=== PATIENT | male | born 1990 | race Caucasian/White ===

== ENCOUNTER 2019-10-31 04:20 | Day surgery (SDC) | payer OTHER ==
[2019-10-30 13:09] VITALS: BMI 25.4
[2019-10-31 11:01] VITALS: PULSE 78
[2019-10-31] MEDS ORDERED: BUPIVACAINE HCL/PF 0.75% 10 ML VIAL ONE (11:20)
--- NOTE | 2019-10-31 11:22 | PROC ---
Procedure Note Procedure: Preprocedure Diagnosis: Bilateral Sacroiliac Joint dysfunction Post Procedure Diagnosis: same Anesthesia: local Procedure Performed: Bilateral Sacroiliac Joint Blocks Procedure: After the risks and benefits were explained, informed consent was obtained. The patient was then taken to the procedure room and positioned prone on the procedure table. Time out was performed. The region overlying the sacrum was identified using fluoroscopy. The skin was prepped and draped in the usual sterile fashion. The skin and soft tissues were anesthetized using 1% lidocaine. Using fluoroscopic guidance, A 22g 3.5 inch spinal needle was introduced the junction of the inferior articulating facet and the sacrum where the L5 medial branch is located, and 25-gauge 2.5 inch spinal needles were then introduced to sacrum lateral to the right S1 S2 and S3 foramens where the RIGHT S1-S2 and S3 lateral branches are located. Omnipaque 180 confirmed appropriate needle placement. There was no epidural or vascular flow observed. .75% bupivacaine was drawn into a syringe. 0.5cc of this solution was then injected at each level. The same procedure was repeated on the LEFT side at the same levels. The patient tolerated the procedure well and there were no complications. The patient was taken to the post procedure recovery area in good condition. Vital signs remained stable before, and after the procedure. The patient was given oral follow-up instructions.The patient was givena follow up appointment with me in the near future. Alexander Xiong D.O
[2019-10-31] MEDS ORDERED: LIDOCAINE HCL 1%, 10 MG/ML (20ML VIAL) INF ONE (11:42)
[2019-10-31] MEDS ORDERED: BUPIVACAINE HCL/PF 0.75% 10 ML VIAL NR ONE (11:43)
[2019-10-31 14:18] VITALS: BP 123/73; TEMP 97.5
== END 2019-10-31 12:45 | disposition home or self-care (01) ==
LOC: JASU-SURG 04:20
PROVIDERS: ATTEND Pain Medicine Pain Medicine
PROC: 3E0T33Z Introduction of Anti-inflammatory into Peripheral Nerves and Plexi, Percutaneous Approach (ICD-10-PCS; 2019-10-31)
PROC: 3E0T3BZ Introduction of Anesthetic Agent into Peripheral Nerves and Plexi, Percutaneous Approach (ICD-10-PCS; principal; 2019-10-31 11:00)
DX: M53.3 Sacrococcygeal disorders, not elsewhere classified (principal)
CPT/HCPCS: 76000-TC-FY

== ENCOUNTER 2019-11-14 04:36 | Day surgery (SDC) | payer OTHER ==
[2019-11-13 08:01] VITALS: BMI 25.4
[2019-11-14] MEDS ORDERED: BUPIVACAINE HCL 50 ML ONE (07:17)
[2019-11-14] MEDS ORDERED: BUPIVACAINE HCL/PF 0.25% (2.5MG/ML) 10 ML VIAL ONE (07:17)
[2019-11-14] MEDS ORDERED: LIDOCAINE HCL 1%, 10 MG/ML (20ML VIAL) ONE (07:17)
[2019-11-14] MEDS ORDERED: IOHEXOL 180 MG/1 ML ML IJ ONE (10:42)
[2019-11-14] MEDS ORDERED: BUPIVACAINE HCL/PF 2.5 MG/ML - 30 ML VIAL IJ ONE (10:42)
[2019-11-14 12:29] VITALS: TEMP 97.8
[2019-11-14 12:47] VITALS: BP 130/70; PULSE 74
--- NOTE | 2019-11-17 22:19 | PROC ---
Procedure Note Procedure: Pre procedure Diagnosis: Cervical Spondylosis Post Procedure Diagnosis: same Anesthesia: local Procedure Performed: Right and Left C3 C4 C5 medial branch block under fluorocopic guidance After the risks and benefits were explained, informed consent was obtained. The patient was then taken to the procedure room and positioned prone on the procedure table. Time out was performed. The region overlying the appropriate vertebral bodies was identified using fluoroscopy. The skin was prepped and draped in the usual sterile fashion. Using fluoroscopic guidance, 25 gauge 2.5 inch spinal needles were then introduced to the fossa at the center of the waists of the articular pillars where the BILATERAL C3, C4, and C5 medial branches are located. Omnipaque 180 confirmed appropriate needle placement. There was no epidural or vascular flow observed. .25 % bupivacaine was drawn into a syringe. 0.5cc of this solution was then injected at each level. The same procedure was repeated on the LEFT side at the same levels. The patient tolerated the procedure well and there were no complications. The patient was taken to the post procedure recovery area in good condition. Vital signs remained stable before, during, and after the procedure. The patient was given oral and written follow-up instructions. The patient was given a follow up appointment with me in the near future. Alexander Xiong DO
== END 2019-11-14 11:45 | disposition home or self-care (01) ==
LOC: JASU-SURG 04:36
PROVIDERS: ATTEND Pain Medicine Pain Medicine
PROC: 3E0T33Z Introduction of Anti-inflammatory into Peripheral Nerves and Plexi, Percutaneous Approach (ICD-10-PCS; 2019-11-14)
PROC: 3E0T3BZ Introduction of Anesthetic Agent into Peripheral Nerves and Plexi, Percutaneous Approach (ICD-10-PCS; principal; 2019-11-14 12:00)
DX: M47.812 Spondylosis without myelopathy or radiculopathy, cervical region (principal)
CPT/HCPCS: 76000-TC-FY

== ENCOUNTER 2019-12-26 04:31 | Day surgery (SDC) | payer OTHER ==
[2019-12-25 15:16] VITALS: BMI 24.7
--- NOTE | 2019-12-25 23:06 | PROC ---
Procedure Note Procedure: Pre procedure Diagnosis: Lumbar Radiculopathy Post Procedure Diagnosis: same Anesthesia: Local Procedure Performed: Right L4 and L5 Transforaminal Epidural Steroid Injection After the risks and benefits were explained, informed consent was obtained. The patient was then taken to the procedure room and positioned prone on the procedure table. Time out was performed. The region overlying the Right L4 and L5 neural foramens were identified using fluoroscopy. The skin was prepped and draped in the usual sterile fashion. The skin and soft tissues were anesthetized using 1% lidocaine. The neural foramens were identified with the fluoroscopic beam directed in a right oblique direction. 2 22 gauge 3.5 inch spinal needles were then introduced into the appropriate neural foramens using intermittent fluoroscopic guidance using AP, oblique and lateral views as indicated. Needle placement was then confirmed with the injection of Omnipaque 180. Epidural flow was noted and the nerve root was outlined. No vascular uptake was noted. Next, a mixture 1.5 cc of dexamethasone and Normal saline followed by 0.5 cc of 1% lidocaine was then injected around the Right L4 and L5 spinal nerves. The patient tolerated the procedure well and there were no complications. The patient was taken to the post procedure recovery area in good condition. Vital signs remained stable before, during, and after the procedure. The patient was given oral and written follow-up instructions. The patient was given a follow up appointment with me in the near future. Alexander Xiong DO
[2019-12-26] MEDS ORDERED: LIDOCAINE HCL 1% PRESERVATIVE FREE - 30ML VIAL IJ ONE (08:57)
[2019-12-26] MEDS ORDERED: IOHEXOL 180 MG/1 ML ML IJ ONE (08:57)
[2019-12-26] MEDS ORDERED: DEXAMETHASONE SOD PHOSPHATE 10 MG/1 ML VIAL IVPUSH ONE (08:58)
[2019-12-26 09:47] VITALS: TEMP 97.4
[2019-12-26 10:09] VITALS: BP 120/79; PULSE 58
== END 2019-12-26 10:21 | disposition home or self-care (01) ==
LOC: JASU-SURG 04:31
PROVIDERS: ATTEND Pain Medicine Pain Medicine
PROC: 3E0R33Z Introduction of Anti-inflammatory into Spinal Canal, Percutaneous Approach (ICD-10-PCS; 2019-12-26)
PROC: 3E0R3BZ Introduction of Anesthetic Agent into Spinal Canal, Percutaneous Approach (ICD-10-PCS; principal; 2019-12-26 08:30)
DX: M54.16 Radiculopathy, lumbar region (principal); M54.5 Low back pain
CPT/HCPCS: 76000-TC-FY; J1100

== ENCOUNTER 2020-02-06 04:19 | Day surgery (SDC) | payer OTHER ==
[2020-02-05 15:39] VITALS: BMI 25.1
[2020-02-06 06:37] VITALS: TEMP 98.2
[2020-02-06] MEDS ORDERED: TRIAMCINOLONE ACET 40MG/1ML VIAL ONE (07:10)
[2020-02-06] MEDS ORDERED: DEXAMETHASONE SOD PHOSPHATE/PF 10 MG/ML SDV ONE (07:11)
[2020-02-06] MEDS ORDERED: LIDOCAINE HCL/PF 1% SDV 5ML VIAL ONE (07:11)
[2020-02-06] MEDS ORDERED: BUPIVACAINE HCL/PF 0.75% 10 ML VIAL ONE (07:12)
[2020-02-06] MEDS ORDERED: SODIUM CHLORIDE 0.9% P/F 10 ML VIAL IJ ONE (07:34)
[2020-02-06] MEDS ORDERED: IOHEXOL 180 MG/1 ML ML IJ ONE (08:12)
[2020-02-06] MEDS ORDERED: BUPIVACAINE HCL/PF 0.5% (5MG/ML) 10 ML VIAL IJ ONE (08:13)
[2020-02-06] MEDS ORDERED: BUPIVACAINE HCL/PF 0.75% 10 ML VIAL NR ONE ×2 (08:13)
[2020-02-06 09:26] VITALS: BP 123/75; PULSE 81
== END 2020-02-06 09:28 | disposition home or self-care (01) ==
LOC: JASU-SURG 04:19
PROVIDERS: ATTEND Pain Medicine Pain Medicine
PROC: 3E0T33Z Introduction of Anti-inflammatory into Peripheral Nerves and Plexi, Percutaneous Approach (ICD-10-PCS; 2020-02-06)
PROC: 3E0T3BZ Introduction of Anesthetic Agent into Peripheral Nerves and Plexi, Percutaneous Approach (ICD-10-PCS; principal; 2020-02-06 08:00)
DX: M47.812 Spondylosis without myelopathy or radiculopathy, cervical region (principal)
CPT/HCPCS: 76000-TC-FY

== ENCOUNTER 2020-05-14 06:25 | Day surgery (SDC) | payer OTHER ==
[2020-05-13 11:38] VITALS: BMI 25.1
[2020-05-14] MEDS ORDERED: DEXAMETHASONE SOD PHOSPHATE 10 MG/1 ML VIAL IVPUSH ONE (11:38)
[2020-05-14] MEDS ORDERED: IOHEXOL 180 MG/1 ML ML IJ ONE (11:38)
[2020-05-14] MEDS ORDERED: LIDOCAINE HCL 1% PRESERVATIVE FREE - 30ML VIAL EP ONE (11:38)
[2020-05-14 14:54] VITALS: BP 133/83; PULSE 80; TEMP 98
== END 2020-05-14 13:10 | disposition home or self-care (01) ==
LOC: JASU-SURG 06:25
PROVIDERS: ATTEND Pain Medicine Pain Medicine
PROC: 3E0R33Z Introduction of Anti-inflammatory into Spinal Canal, Percutaneous Approach (ICD-10-PCS; principal; 2020-05-14 11:00)
DX: M54.16 Radiculopathy, lumbar region (principal)
CPT/HCPCS: 76000-TC-FY; J1100

== ENCOUNTER 2020-10-29 04:47 | Day surgery (SDC) | payer OTHER ==
[2020-10-27 18:10] VITALS: BMI 26.9
[2020-10-29] MEDS ORDERED: BUPIVACAINE HCL/PF 0.75% 10 ML VIAL ONE (07:22)
[2020-10-29] MEDS ORDERED: LIDOCAINE 1% P/F 10 MG/ML VIAL INF ONE ×2 (15:15)
[2020-10-29 17:20] VITALS: BP 120/72; PULSE 80; TEMP 98
== END 2020-10-29 17:21 | disposition home or self-care (01) ==
LOC: JASU-SURG 04:47
PROVIDERS: ATTEND Pain Medicine Pain Medicine
PROC: 01HY3MZ Insertion of Neurostimulator Lead into Peripheral Nerve, Percutaneous Approach (ICD-10-PCS; principal; 2020-10-29 13:15)
DX: G89.4 Chronic pain syndrome (principal); M54.5 Low back pain
CPT/HCPCS: 64555; C1778; 76000-TC-FY

== ENCOUNTER 2021-03-08 05:14 | Day surgery (SDC) | payer OTHER ==
[2021-03-04 14:12] VITALS: BMI 28.5
[~2021-03-08 05:14] MED LIST: LIDOCAINE 1% P/F 10 MG/ML VIAL INF ONE
[2021-03-08] MEDS ORDERED: LIDOCAINE HCL/PF 2% SDV 5ML VIAL ONE (07:21)
[2021-03-08] MEDS ORDERED: LIDOCAINE 1% P/F 10 MG/ML VIAL INF ONE (12:15)
[2021-03-08 14:53] VITALS: BP 114/70; PULSE 67; TEMP 97.1
== END 2021-03-08 15:00 | disposition home or self-care (01) ==
LOC: JASU-SURG 05:14
PROVIDERS: ATTEND Pain Medicine Pain Medicine
PROC: 01HY3MZ Insertion of Neurostimulator Lead into Peripheral Nerve, Percutaneous Approach (ICD-10-PCS; principal; 2021-03-08 11:30)
DX: G89.4 Chronic pain syndrome (principal); M54.89 Other dorsalgia
CPT/HCPCS: 64555; C1778; 76000-TC-FY

== ENCOUNTER 2021-04-05 04:32 | Day surgery (SDC) | payer OTHER ==
[2021-03-31 11:21] VITALS: BMI 28.5
[2021-04-05] MEDS ORDERED: LIDOCAINE HCL/PF 2% SDV 5ML VIAL ONE (07:20)
[2021-04-05] MEDS ORDERED: LIDOCAINE HCL/PF 1% SDV 5ML VIAL ONE ×2 (09:55→12:07)
[2021-04-05] MEDS ORDERED: LIDOCAINE HCL 1% PRESERVATIVE FREE - 30ML VIAL IJ ONE ×2 (10:19→10:27)
[2021-04-05 13:21] VITALS: BP 131/80; PULSE 71; TEMP 98.8
== END 2021-04-05 13:10 | disposition home or self-care (01) ==
LOC: JASU-SURG 04:32
PROVIDERS: ATTEND Pain Medicine Pain Medicine
PROC: 01HY3MZ Insertion of Neurostimulator Lead into Peripheral Nerve, Percutaneous Approach (ICD-10-PCS; principal; 2021-04-05 10:00)
DX: G89.4 Chronic pain syndrome (principal); M54.50 Low back pain, unspecified
CPT/HCPCS: 64555; C1889; 76000-TC-FY

== ENCOUNTER 2021-06-28 04:30 | Day surgery (SDC) | payer OTHER ==
[2021-06-24 17:25] VITALS: BMI 28.5
[~2021-06-28 04:30] MED LIST changes: +DEXAMETHASONE SOD PHOSPHATE 10 MG/1 ML VIAL IVPUSH ONE; +IOHEXOL 180 MG/1 ML ML IJ ONE; -LIDOCAINE 1% P/F 10 MG/ML VIAL INF ONE
[2021-06-28] MEDS ORDERED: LIDOCAINE HCL/PF 1% SDV 5ML VIAL ONE (07:36)
[2021-06-28] MEDS ORDERED: DEXAMETHASONE SOD PHOSPHATE 10 MG/1 ML VIAL ONE (07:37)
[2021-06-28] MEDS ORDERED: LIDOCAINE 1% P/F 10 MG/ML VIAL INF ONE ×2 (08:32)
[2021-06-28] MEDS ORDERED: IOHEXOL 180 MG/1 ML ML IJ ONE (08:34)
[2021-06-28] MEDS ORDERED: DEXAMETHASONE SOD PHOSPHATE 10 MG/1 ML VIAL IVPUSH ONE (08:39)
[2021-06-28] MEDS ORDERED: ACETAMINOPHEN 500 MG TABLET (FP) ONE (09:08)
[2021-06-28 09:17] VITALS: TEMP 98.7
[2021-06-28 11:36] VITALS: BP 118/70; PULSE 65
== END 2021-06-28 10:10 | disposition home or self-care (01) ==
LOC: JASU-SURG 04:30
PROVIDERS: ATTEND Pain Medicine Pain Medicine
PROC: 3E0R33Z Introduction of Anti-inflammatory into Spinal Canal, Percutaneous Approach (ICD-10-PCS; 2021-06-28)
PROC: 3E0R3BZ Introduction of Anesthetic Agent into Spinal Canal, Percutaneous Approach (ICD-10-PCS; principal; 2021-06-28 08:00)
DX: M54.16 Radiculopathy, lumbar region (principal)
CPT/HCPCS: 76000-TC-FY; J1100

== ENCOUNTER 2021-09-09 04:07 | Day surgery (SDC) | payer OTHER ==
[2021-09-07 09:08] VITALS: BMI 28.5
[2021-09-09] MEDS ORDERED: DEXAMETHASONE SOD PHOSPHATE 10 MG/1 ML VIAL ONE (07:16)
[2021-09-09] MEDS ORDERED: LIDOCAINE HCL/PF 1% SDV 5ML VIAL ONE (07:16)
[2021-09-09 07:52] VITALS: PULSE 70
[2021-09-09] MEDS ORDERED: IOHEXOL 180 MG/1 ML ML IJ ONE (09:47)
[2021-09-09] MEDS ORDERED: LIDOCAINE HCL 1% PRESERVATIVE FREE - 30ML VIAL IJ ONE ×2 (09:48)
[2021-09-09] MEDS ORDERED: DEXAMETHASONE SOD PHOSPHATE 10 MG/1 ML VIAL IVPUSH ONE (09:50)
[2021-09-09 11:17] VITALS: BP 119/71; TEMP 98.9
== END 2021-09-09 10:40 | disposition home or self-care (01) ==
LOC: JASU-SURG 04:07
PROVIDERS: ATTEND Pain Medicine Pain Medicine
PROC: 3E0R33Z Introduction of Anti-inflammatory into Spinal Canal, Percutaneous Approach (ICD-10-PCS; 2021-09-09)
PROC: 3E0R3BZ Introduction of Anesthetic Agent into Spinal Canal, Percutaneous Approach (ICD-10-PCS; principal; 2021-09-09 09:15)
DX: M54.16 Radiculopathy, lumbar region (principal)
CPT/HCPCS: 76000-TC-FY; J1100

== ENCOUNTER 2021-10-21 04:06 | Day surgery (SDC) | payer OTHER ==
[2021-10-19 13:38] VITALS: BMI 28.5
[2021-10-21] MEDS ORDERED: BUPIVACAINE HCL/PF 0.5% (5MG/ML) 10 ML VIAL ONE (07:55)
[2021-10-21] MEDS ORDERED: LIDOCAINE HCL/PF 1% SDV 5ML VIAL ONE (07:56)
[2021-10-21 08:10] VITALS: RESP 18
[2021-10-21] MEDS ORDERED: BUPIVACAINE HCL/PF 0.5% (5MG/ML) 10 ML VIAL IJ ONE (10:05)
[2021-10-21 12:44] VITALS: BP 104/67; PULSE 56; TEMP 98.7
== END 2021-10-21 10:51 | disposition home or self-care (01) ==
LOC: JASU-SURG 04:06
PROVIDERS: ATTEND Pain Medicine Pain Medicine
PROC: 3E0T33Z Introduction of Anti-inflammatory into Peripheral Nerves and Plexi, Percutaneous Approach (ICD-10-PCS; 2021-10-21)
PROC: 3E0T3BZ Introduction of Anesthetic Agent into Peripheral Nerves and Plexi, Percutaneous Approach (ICD-10-PCS; principal; 2021-10-21 09:15)
DX: M47.812 Spondylosis without myelopathy or radiculopathy, cervical region (principal)
CPT/HCPCS: 76000-TC-FY

== ENCOUNTER 2022-02-17 04:01 | Day surgery (SDC) | payer OTHER ==
[2022-02-16 09:08] VITALS: BMI 28.5
[2022-02-17 07:13] VITALS: RESP 18
[2022-02-17] MEDS ORDERED: LIDOCAINE HCL 1% PRESERVATIVE FREE - 30ML VIAL IJ ONE ×2 (07:34→08:29)
[2022-02-17] MEDS ORDERED: LIDOCAINE HCL/PF 2% SDV 5ML VIAL INF ONE (07:35)
[2022-02-17] MEDS ORDERED: LIDOCAINE HCL/PF 1% SDV 5ML VIAL ONE (07:37)
[2022-02-17] MEDS ORDERED: LIDOCAINE HCL/PF 2% SDV 5ML VIAL ONE (07:37)
[2022-02-17 09:51] VITALS: BP 110/70; PULSE 65; TEMP 98.8
== END 2022-02-17 09:57 | disposition home or self-care (01) ==
LOC: JASU-SURG 04:01
PROVIDERS: ATTEND Pain Medicine Pain Medicine
PROC: 01HY0MZ Insertion of Neurostimulator Lead into Peripheral Nerve, Open Approach (ICD-10-PCS; principal; 2022-02-17 08:00)
DX: G89.4 Chronic pain syndrome (principal); M54.50 Low back pain, unspecified
CPT/HCPCS: 64555; C1897; 76000-TC-FY; C1778

== ENCOUNTER 2022-03-07 04:25 | Day surgery (SDC) | payer OTHER ==
[2022-03-03 11:51] VITALS: BMI 28.5
[2022-03-07] MEDS ORDERED: LIDOCAINE HCL/PF 1% SDV 5ML VIAL ONE (07:08)
[2022-03-07 07:59] VITALS: RESP 18
[2022-03-07] MEDS ORDERED: LIDOCAINE HCL 1% PRESERVATIVE FREE - 30ML VIAL IJ ONE (09:57)
[2022-03-07] MEDS ORDERED: ACETAMINOPHEN 325 MG TABLET (FP) ONE (11:21)
[2022-03-07] MEDS ORDERED: ACETAMINOPHEN 325 MG TABLET (FP) PO ONE (11:25)
[2022-03-07 13:39] VITALS: TEMP 98.9
[2022-03-07 14:30] VITALS: BP 124/84; PULSE 76
== END 2022-03-07 11:50 | disposition home or self-care (01) ==
LOC: JASU-SURG 04:25
PROVIDERS: ATTEND Pain Medicine Pain Medicine
PROC: 01HY0MZ Insertion of Neurostimulator Lead into Peripheral Nerve, Open Approach (ICD-10-PCS; principal; 2022-03-07 09:00)
DX: G89.4 Chronic pain syndrome (principal)
CPT/HCPCS: 64555; C1897; 76000-TC-FY; C1778

== ENCOUNTER 2022-06-06 05:13 | Day surgery (SDC) | payer OTHER ==
[2022-05-25 12:44] VITALS: BMI 27.5
[~2022-06-06 05:13] MED LIST changes: +BUPIVACAINE HCL/PF 0.5% (5MG/ML) 10 ML VIAL PNB ONE; -DEXAMETHASONE SOD PHOSPHATE 10 MG/1 ML VIAL IVPUSH ONE; +LIDOCAINE 1% P/F 10 MG/ML VIAL PNB ONE
[2022-06-06] MEDS ORDERED: BUPIVACAINE HCL/PF 0.25% (2.5MG/ML) 10 ML VIAL ONE (09:31)
[2022-06-06] MEDS ORDERED: IOHEXOL 180 MG/1 ML ML IJ ONE (09:34)
[2022-06-06] MEDS ORDERED: LIDOCAINE 1% P/F 10 MG/ML VIAL PNB ONE (09:34)
[2022-06-06] MEDS ORDERED: BUPIVACAINE HCL/PF 0.5% (5MG/ML) 10 ML VIAL PNB ONE (09:34)
[2022-06-06 09:55] VITALS: RESP 20
[2022-06-06 10:44] VITALS: BP 118/70; PULSE 70; TEMP 98
== END 2022-06-06 10:35 | disposition home or self-care (01) ==
LOC: JASU-SURG 05:13
PROVIDERS: ATTEND Pain Medicine Pain Medicine
PROC: 3E0T33Z Introduction of Anti-inflammatory into Peripheral Nerves and Plexi, Percutaneous Approach (ICD-10-PCS; 2022-06-06)
PROC: 3E0T3BZ Introduction of Anesthetic Agent into Peripheral Nerves and Plexi, Percutaneous Approach (ICD-10-PCS; principal; 2022-06-06 09:00)
DX: M47.812 Spondylosis without myelopathy or radiculopathy, cervical region (principal)
CPT/HCPCS: 76000-TC-FY

== ENCOUNTER 2022-09-08 04:01 | Day surgery (SDC) | payer OTHER ==
[2022-09-06 14:21] VITALS: BMI 28.7
[2022-09-08] MEDS ORDERED: LIDOCAINE HCL/PF 1% SDV 5ML VIAL ONE (07:47)
[2022-09-08] MEDS ORDERED: ceFAZolin SODIUM 1 GM VIAL ONE (14:08)
[2022-09-08] MEDS ORDERED: ACETAMINOPHEN 500 MG TABLET (FP) PO PRN (15:01)
[2022-09-08] MEDS ORDERED: LIDOCAINE HCL/PF 2% SDV 5ML VIAL ONE (15:22)
[2022-09-08] MEDS ORDERED: LIDOCAINE HCL 2% (20ML MULTI-DOSE VIAL) ONE (15:22)
[2022-09-08] MEDS ORDERED: ceFAZolin SODIUM 1 GM VIAL IVPB ONE (15:32)
[2022-09-08] MEDS ORDERED: LIDOCAINE HCL 1% PRESERVATIVE FREE - 30ML VIAL IJ ONE ×2 (15:48)
[2022-09-08] MEDS ORDERED: LIDOCAINE HCL/PF 2% SDV 5ML VIAL INF ONE ×2 (15:50)
[2022-09-08] MEDS ORDERED: ceFAZolin 2 GRAM PREMIX BAG IVPB SCH (16:45)
[2022-09-08 19:19] VITALS: RESP 18
[2022-09-08 19:25] VITALS: BP 117/82; PULSE 89; TEMP 98.4
== END 2022-09-08 19:10 | disposition home or self-care (01) ==
LOC: JASU-SURG 04:01
PROVIDERS: ATTEND Pain Medicine Pain Medicine
PROC: 00HV3MZ Insertion of Neurostimulator Lead into Spinal Cord, Percutaneous Approach (ICD-10-PCS; principal; 2022-09-08 15:45)
DX: M96.1 Postlaminectomy syndrome, not elsewhere classified (principal)
CPT/HCPCS: 63650; C1897; 76000-TC-FY; C1787

== ENCOUNTER 2022-10-20 05:03 | Day surgery (SDC) | payer OTHER ==
[2022-10-13 17:59] VITALS: BMI 28.5
[~2022-10-20 05:03] MED LIST changes: -BUPIVACAINE HCL/PF 0.5% (5MG/ML) 10 ML VIAL PNB ONE; +DEXAMETHASONE SOD PHOSPHATE 10 MG/1 ML VIAL IM ONE; -LIDOCAINE 1% P/F 10 MG/ML VIAL PNB ONE; +LIDOCAINE HCL 1% PRESERVATIVE FREE - 30ML VIAL IJ ONE
[2022-10-20] MEDS ORDERED: DEXAMETHASONE SOD PHOSPHATE 10 MG/1 ML VIAL ONE (07:41)
[2022-10-20] MEDS ORDERED: LIDOCAINE HCL/PF 1% SDV 5ML VIAL ONE (07:41)
[2022-10-20 09:19] VITALS: RESP 18
[2022-10-20] MEDS ORDERED: LIDOCAINE HCL 1% PRESERVATIVE FREE - 30ML VIAL IJ ONE (11:15)
[2022-10-20] MEDS ORDERED: IOHEXOL 180 MG/1 ML ML IJ ONE (11:20)
[2022-10-20] MEDS ORDERED: DEXAMETHASONE SOD PHOSPHATE 10 MG/1 ML VIAL IM ONE (11:22)
[2022-10-20 12:14] VITALS: BP 128/75; PULSE 64; TEMP 98.2
[2022-10-20] MEDS ORDERED: ACETAMINOPHEN 500 MG TABLET (FP) PO PRN (12:54)
== END 2022-10-20 12:14 | disposition home or self-care (01) ==
LOC: JASU-SURG 05:03
PROVIDERS: ATTEND Pain Medicine Pain Medicine
PROC: 3E0R3BZ Introduction of Anesthetic Agent into Spinal Canal, Percutaneous Approach (ICD-10-PCS; 2022-10-20)
PROC: 3E0R33Z Introduction of Anti-inflammatory into Spinal Canal, Percutaneous Approach (ICD-10-PCS; principal; 2022-10-20 11:00)
DX: M54.16 Radiculopathy, lumbar region (principal)
CPT/HCPCS: 76000-TC-FY; J1100

== ENCOUNTER 2023-02-06 04:18 | Day surgery (SDC) | payer OTHER ==
[2023-02-05 09:24] VITALS: BMI 27.2
[2023-02-06] MEDS ORDERED: DEXAMETHASONE SOD PHOSPHATE 4 MG/1 ML VIAL ONE (07:18)
[2023-02-06] MEDS ORDERED: DEXAMETHASONE SOD PHOSPHATE 10 MG/1 ML VIAL ONE (07:19)
[2023-02-06] MEDS ORDERED: LIDOCAINE HCL/PF 1% SDV 5ML VIAL ONE (07:19)
[2023-02-06] MEDS ORDERED: LIDOCAINE 1% P/F 10 MG/ML VIAL INF ONE ×2 (09:35→09:46)
[2023-02-06] MEDS ORDERED: DEXAMETHASONE SOD PHOSPHATE 10 MG/1 ML VIAL IVPUSH ONE ×2 (09:35→09:46)
[2023-02-06] MEDS ORDERED: IOHEXOL 180 MG/1 ML ML IJ ONE (09:45)
[2023-02-06 10:16] VITALS: BP 112/72; PULSE 18; RESP 18; TEMP 98.5
[2023-02-06] MEDS ORDERED: ACETAMINOPHEN 500 MG TABLET (FP) PO PRN (12:55)
== END 2023-02-06 10:45 | disposition home or self-care (01) ==
LOC: JASU-SURG 04:18
PROVIDERS: ATTEND Pain Medicine Pain Medicine
PROC: 3E0R3BZ Introduction of Anesthetic Agent into Spinal Canal, Percutaneous Approach (ICD-10-PCS; 2023-02-06)
PROC: 3E0R33Z Introduction of Anti-inflammatory into Spinal Canal, Percutaneous Approach (ICD-10-PCS; principal; 2023-02-06 09:30)
DX: M54.16 Radiculopathy, lumbar region (principal)
CPT/HCPCS: 76000-TC-FY; J1100

== ENCOUNTER 2023-11-15 04:20 | Day surgery (SDC) | payer OTHER ==
[2023-11-14 11:11] VITALS: BMI 26.9
[2023-11-15 06:28] VITALS: TEMP 98
[2023-11-15] MEDS ORDERED: LIDOCAINE HCL/PF 1% SDV 5ML VIAL ONE (07:16)
[2023-11-15] MEDS ORDERED: FAMOTIDINE 20 MG/50 ML IVPB 20 MG/50 ML MG IVPB ONE (08:28)
[2023-11-15] MEDS: ceFAZolin SODIUM 1 GM VIAL IVPB ONE (08:39)
[2023-11-15] MEDS: LIDOCAINE 1% P/F 10 MG/ML VIAL PNB ONE (08:42)
[2023-11-15] MEDS: LIDOCAINE HCL/PF 2% SDV 5ML VIAL PNB ONE (08:42)
[2023-11-15 10:14] VITALS: BP 110/61; PULSE 64; RESP 17
== END 2023-11-15 11:03 | disposition home or self-care (01) ==
LOC: JASU-SURG 04:20
PROVIDERS: ATTEND Pain Medicine Pain Medicine
PROC: 00HV3MZ Insertion of Neurostimulator Lead into Spinal Cord, Percutaneous Approach (ICD-10-PCS; principal; 2023-11-15 08:00)
DX: M96.1 Postlaminectomy syndrome, not elsewhere classified (principal)
CPT/HCPCS: 63650; C1778; 76000-TC-FY; C1889; C1897; J0131

== ENCOUNTER 2024-02-21 04:43 | Day surgery (SDC) | payer OTHER ==
[2024-02-13 13:15] VITALS: BMI 25.5
[2024-02-21] MEDS ORDERED: LIDOCAINE HCL/PF 1% SDV 5ML VIAL ONE (07:50)
[2024-02-21] MEDS ORDERED: ACETAMINOPHEN 500 MG TABLET (FP) PO PRN (08:44)
[2024-02-21] MEDS: LIDOCAINE HCL 1%, 10 MG/ML (20ML VIAL) INF ONE (19:32)
[2024-02-21] MEDS: DEXAMETHASONE SOD PHOSPHATE 10 MG/1 ML VIAL IVPUSH ONE (19:32)
[2024-02-21] MEDS: IOHEXOL 180 MG/1 ML ML IJ ONE (19:33)
[2024-02-21 20:02] VITALS: RESP 18
[2024-02-21 20:39] VITALS: BP 120/72; PULSE 80; TEMP 97.4
== END 2024-02-21 20:10 | disposition home or self-care (01) ==
LOC: JASU-SURG 04:43
PROVIDERS: ATTEND Pain Medicine Pain Medicine
PROC: 3E0R3BZ Introduction of Anesthetic Agent into Spinal Canal, Percutaneous Approach (ICD-10-PCS; 2024-02-21)
PROC: 3E0R33Z Introduction of Anti-inflammatory into Spinal Canal, Percutaneous Approach (ICD-10-PCS; principal; 2024-02-21 17:30)
DX: M54.16 Radiculopathy, lumbar region (principal)
CPT/HCPCS: 76000-TC-FY; J1100